=== PATIENT | female | born 1990 | race American Indian/Alaskan Native ===

== ENCOUNTER 2019-10-05 08:45 | Emergency (ER) | payer SELFPAY ==
[2019-10-05 08:59] VITALS: BP 117/72
[2019-10-05] MEDS ORDERED: ONDANSETRON 4 MG ODT TAB PO STA (09:29)
[2019-10-05] MEDS ORDERED: HYDROcodone/ACETAMINOPHEN 5-325 MG TAB PO STA (09:29)
--- NOTE | 2019-10-05 09:42 | Emergency Department Report ---
- General Chief Complaint: Weakness Stated Complaint: BODY ACHE/N/V/SIDE PAIN Time Seen by Provider: 10/05/19 09:29 Source: patient Mode of arrival: Ambulatory Limitations: No Limitations - History of Present Illness Initial Comments: 29-year-old F [place] female with no reported past medical history presents emergency emerge department complaining of a 4-day history of nausea, right- sided torso pain with this with associated headache fever sensation weakness and occasional lightheadedness with position change. She works as a warehouse associate and to her knowledge has not come in contact with any Covid positive persons. She did she denies foreign travel. Severity: mild Quality: aching Consistency: constant Associated Symptoms: chills, myalgias, rhinorrhea, nausea. denies: vomiting, diarrhea, dysuria, weight loss, epistaxis, hoarseness, ear pain - Related Data Previous Rx's Medication Instructions Recorded Last Taken Type Ondansetron [Zofran TAB] 4 mg PO Q6H PRN #12 tablet 05/30/13 Unknown Rx Azithromycin [Zithromax Tri-King] 500 mg PO DAILY #3 tablet 10/05/19 Unknown Rx Ketorolac [Toradol] 10 mg PO Q6H PRN #10 tablet 10/05/19 Unknown Rx Ondansetron [Zofran Odt] 4 mg PO Q8HR #14 tab.rapdis 10/05/19 Unknown Rx Allergies Allergy/AdvReac Type Severity Reaction Status Date / Time Penicillins Allergy Hives Verified 05/30/13 02:31 ED Review of Systems ROS: Stated complaint: BODY ACHE/N/V/SIDE PAIN Other details as noted in HPI Comment: All other systems reviewed and negative ED Past Medical Hx - Past Medical History Previous Medical History?: No - Surgical History Past Surgical History?: No - Social History Smoking Status: Never Smoker Substance Use Type: None - Medications Home Medications: Home Medications Medication Instructions Recorded Confirmed Last Taken Type Ondansetron [Zofran TAB] 4 mg PO Q6H PRN #12 tablet 05/30/13 Unknown Rx Azithromycin [Zithromax Tri-King] 500 mg PO DAILY #3 tablet 10/05/19 Unknown Rx Ketorolac [Toradol] 10 mg PO Q6H PRN #10 tablet 10/05/19 Unknown Rx Ondansetron [Zofran Odt] 4 mg PO Q8HR #14 tab.rapdis 10/05/19 Unknown Rx ED Physical Exam - General Limitations: No Limitations General appearance: alert, in no apparent distress - Head Head exam: Present: atraumatic, normocephalic - Eye Eye exam: Present: normal appearance, PERRL, EOMI Pupils: Present: normal accommodation - ENT ENT exam: Present: mucous membranes moist, other (Nasal congestion is noted bilaterally. No epistaxis. Pharynx is clear airway patent) - Neck Neck exam: Present: normal inspection, full ROM. Absent: lymphadenopathy - Respiratory Respiratory exam: Present: normal lung sounds bilaterally, chest wall tenderness. Absent: respiratory distress, wheezes, rales, rhonchi - Cardiovascular Cardiovascular Exam: Present: regular rate, normal rhythm. Absent: systolic murmur, diastolic murmur, rubs, gallop - GI/Abdominal GI/Abdominal exam: Present: soft, normal bowel sounds. Absent: distended, hyperactive bowel sounds, hypoactive bowel sounds - Extremities Exam Extremities exam: Present: normal inspection, normal capillary refill - Back Exam Back exam: Present: normal inspection. Absent: CVA tenderness (R), CVA tenderness (L) - Neurological Exam Neurological exam: Present: alert, oriented X3, CN II-XII intact, normal gait - Psychiatric Psychiatric exam: Present: normal affect, normal mood. Absent: anxious, flat affect, manic - Skin Skin exam: Present: warm, dry, intact, normal color. Absent: rash ED Course Vital Signs 10/05/19 10/05/19 08:51 08:57 Temperature 101 F H 101.0 F H Pulse Rate 100 H Respiratory 18 Rate Blood Pressure 117/72 O2 Sat by Pulse 100 Oximetry ED Medical Decision Making - Radiology Data Radiology results: report reviewed Referring Physician:MARIA DE JESUS INTERIANOPatient Name:KAITLIN MORA MIMSPatient ID:[id number] of :[id number]:FemaleAccession:[id number] Date:[id number] Status:Finalized Findings [facility] [address] [place] [address] XRay Report Signed Patient: KAITLIN DUNNE MR#: [id number] : 1990 Acct:[id number] Age/Sex: 29 / F ADM Date: 10/05/19 Loc: ED Attending Dr: Ordering Physician: NANI KINCAID Date of Service: 10/05/19 Procedure(s): XR chest routine 2V Accession Number(s): [id number] cc: NANI KINCAID Fluoro Time In Minutes: CHEST 2 VIEWS INDICATION: MAIN: fever and cough for 4 days. COMPARISON: None FINDINGS: Support devices: None. Heart: Within normal limits. Lungs/pleura: No acute air space or interstitial disease. No pneumothorax. Additional findings: None. IMPRESSION: 1. No acute findings. Signer Name: Edmund Daniel MD Signed: 10/05/2019 9:50 AM Workstation Name: [id number] Transcribed By: ADAMS Dictated By: Edmund Daniel MD Electronically Authenticated By: Edmund Daniel MD Signed Date/Time: 10/05/19 0950 Critical care attestation.: If time is entered above; I have spent that time in minutes in the direct care of this critically ill patient, excluding procedure time. ED Disposition Clinical Impression: Fever, Nausea, Bronchitis Disposition: DC-01 TO HOME OR SELFCARE Is pt being admited?: No Does the pt Need Aspirin: No Condition: Stable Instructions: Fever in Adults (ED), Viral Syndrome (ED), Musculoskeletal Pain (ED), Thoracic Pain (ED), Chronic Bronchitis (ED) Prescriptions: Ketorolac [Toradol] 10 mg PO Q6H PRN #10 tablet PRN Reason: Pain Azithromycin [Zithromax Tri-King] 500 mg PO DAILY #3 tablet Ondansetron [Zofran Odt] 4 mg PO Q8HR #14 tab.rapdis Referrals: [facility] [Primary Care Provider] - 3-5 Days [facility] [Provider Group] - 3-5 Days
--- NOTE | 2019-10-05 09:55 | XRay Report ---
CHEST 2 VIEWS INDICATION: MAIN: fever and cough for 4 days. COMPARISON: None FINDINGS: Support devices: None. Heart: Within normal limits. Lungs/pleura: No acute air space or interstitial disease. No pneumothorax. Additional findings: None. IMPRESSION: 1. No acute findings. Signer Name: Edmund Daniel MD Signed: 10/05/2019 9:50 AM Workstation Name: [email or web address]
== END 2019-10-05 11:06 | disposition home or self-care (01) ==
LOC: ED 08:45
DX: J40 Bronchitis, not specified as acute or chronic (principal); R50.9 Fever, unspecified; R11.0 Nausea; R42 Dizziness and giddiness; Z79.2 Long term (current) use of antibiotics; Z79.899 Other long term (current) drug therapy; Z88.0 Allergy status to penicillin
CPT/HCPCS: 71046; Q0162